=== PATIENT | male | born 1995 | race Two or more races ===

== ENCOUNTER 2020-02-29 20:03 | Emergency (ER) | payer OTHER ==
[~2020-02-29] VITALS: Ht 182.9 cm; Wt 78.0 kg
[2020-02-29 20:10] VITALS: BP 135/63
[2020-02-29] MEDS ORDERED: FLUORESCEIN OPHTH TEST STRIP. OS ONE (20:30)
[2020-02-29] MEDS ORDERED: TOBR5DRO2 OS (20:42)
--- NOTE | 2020-02-29 20:42 | PHYS DOC ---
Past Medical History Past Medical History: No Pertinent History Past Surgical History: No Surgical History Smoking Status: Current Every Day Smoker Alcohol Use: None Drug Use: None General Adult EDM: Chief Complaint: FOREIGN BODY/EYES HPI: HPI: Patient is a 24 year old male who presents with complaint of itching and irritation to his left eye after a piece of glass got into his eye from a screen protector for his phone. Patient states that he has flushed the eye several times but he still has irritation. He states the pain is pretty much gone at this time. He was seen by his primary care doctor today who recommended that he come to the emergency room for evaluation. He denies any change in vision. [] Review of Systems: Review of Systems: Constitutional: Denies fever or chills. [] Eyes: Denies change in visual acuity. Complains of itching and redness with swelling to left eye. [] Respiratory: Denies cough or shortness of breath. [] Cardiovascular: Denies chest pain or edema. [] Heart Score: Risk Factors: Risk Factors: DM, Current or recent (<one month) smoker, HTN, HLP, family history of CAD, obesity. Risk Scores: Score 0 - 3: 2.5% MACE over next 6 weeks - Discharge Home Score 4 - 6: 20.3% MACE over next 6 weeks - Admit for Clinical Observation Score 7 - 10: 72.7% MACE over next 6 weeks - Early Invasive Strategies Current Medications: Current Medications Medications (Trade) Dose Ordered Sig/Aiden Start Time Stop Time Status Last Admin Dose Admin Fluorescein Sodium (Ful-Sabine) 1 strip 1X ONCE 02/29/20 20:30 02/29/20 20:31 DC 02/29/20 20:23 1 STRIP Allergies: Allergies: Allergies Coded Allergies Type Severity Reaction Last Updated Verified No Known Drug Allergies 01/08/16 No Physical Exam: PE: Constitutional: Well developed, well nourished, no acute distress, non-toxic appearance. [] Eyes: PERRLA, EOMI, conjunctiva injected, left eye. Fluorescein exam left eye demonstrates small abrasion to the sclera at 7 o'clock position 2 mm from the c ornea. [] Cardiovascular: Regular rate and rhythm [] Lungs & Thorax: Bilateral breath sounds clear to auscultation [] Current Patient Data: Vital Signs: Vital Signs Date Time Temp Pulse Resp B/P (MAP) Pulse Ox O2 Delivery O2 Flow Rate FiO2 02/29/20 20:10 98.3 90 16 135/63 (87) 97 Room Air 98.3 EKG: EKG: [] Radiology/Procedures: Radiology/Procedures: [] Course & Med Decision Making: Course & Med Decision Making Pertinent Labs and Imaging studies reviewed. (See chart for details) [] Dragon Disclaimer: Dragon Disclaimer: This electronic medical record was generated, in whole or in part, using a voice recognition dictation system. Departure Departure Impression: Primary Impression: Abrasion of sclera of left eye Qualified Codes: S05.8X2A - Other injuries of left eye and orbit, initial encounter Disposition: HOME, SELF-CARE Condition: STABLE Referrals: HIRA GRANDE (PCP) Patient Instructions: Eye - Corneal Abrasion Scripts Tobramycin/Dexamethasone (TOBRADEX EYE DROPS) 5 Ml Drops.susp 1 DROP OS QID, #5 ML Prov: LAUREN HEWITT Jr. DO 02/29/20 LAUREN HEWITT Jr. DO February 29, 2020 20:42
== END 2020-02-29 21:36 | disposition home or self-care (01) ==
LOC: ER 20:03
DX: S05.8X2A Other injuries of left eye and orbit, initial encounter (principal); F17.200 Nicotine dependence, unspecified, uncomplicated; W22.8XXA Striking against or struck by other objects, initial encounter; Y93.89 Activity, other specified; Y92.89 Other specified places as the place of occurrence of the external cause; Y99.8 Other external cause status
CPT/HCPCS: 99283